=== PATIENT | male | born 1980 | race Caucasian/White ===

== ENCOUNTER 2023-08-20 09:32 | Emergency (ER) | payer BC, SELFPAY ==
[2023-08-20 09:34] VITALS: BP 157/99; PULSE 74; RESP 16; TEMP 36.1; O2SAT 97; BMI 32.3
--- NOTE | 2023-08-20 09:46 | EDS_ITS ---
HPI History of Present Illness Chief Complaint: Upper Extremity Injury Detail of Chief Complaint: Right wrist injury Informant: patient Narrative Narrative: Patient presents to the emergency department with concern about possible injury to his right wrist and hand. Patient states that he was using an airless paint sprayer that builds up pressure in the system. Patient accidentally sprayed his right hand and wrist. Initially he thought maybe there was a little open area in the wrist but now does not see any breaks in the skin. He is got a little bit of erythema to the volar wrist and he also thinks he may have sprained the right index finger but he is not having any discomfort and he did not see any broken skin. Patient states that his friend freaked him out because others have lost limbs due to high-pressure injection of forearm material into extremities. PFSH PFSH Allergy/AdvReac Type Severity Reaction Status Date / Time No Known Allergies Allergy Verified 08/20/23 09:33 ROS ROS ED Review of Systems ROS Unobtainable: other Constitutional Constitutional ED: Reports lethargy; Denies chills, fever(s), sweats or weight loss Eyes Eyes: Denies blurry vision, change in vision or diplopia ENT ENT ED: Denies rhinorrhea or sore throat Cardiovascular Cardiovascular: Denies chest pain, orthopnea or racing heartbeat Respiratory/Chest Respiratory/Chest: Denies cough, dyspnea, dyspnea on exertion, orthopnea or sputum Gastrointestinal Gastrointestinal: Denies abdominal pain, diarrhea, nausea or vomiting Genitourinary Genitourinary ED: Denies dysuria, hematuria or urinary frequency Musculoskeletal Musculoskeletal: Reports other Details: Right hand and wrist injury ; Denies arthralgias, back pain, myalgias or neck pain Integumentary Denies abscess, Abrasions or rash Neurologic Neurologic: Denies headache(s) or weakness Psychiatric Psychiatric: Denies anxiety, depression or suicidal thoughts Endocrine Endocrinology: Denies polydipsia, polyphagia or polyuria Hematologic/Lymphatic Hematologic/Lymphatic: Denies easy bleeding, easy bruising or lymphadenopathy Allergic/Immunologic Allergic/Immunologic ED: Denies mouth swelling, tongue swelling or urticaria EXAM Physical Exam Const Vital Signs: 08/20/23 09:34 Temperature 96.9 F L Temperature Source Temporal Pulse Rate 74 Respiratory Rate 16 Blood Pressure 157/99 H Blood Pressure Mean 118 Pulse Ox 97 Oxygen Delivery Method Room Air Positive well nourished and well developed General Appearance ED: well developed and NAD HEENT Reports TM's clear and moist mucous membranes normocephalic and atraumatic; Negative for trauma or tenderness Tympanic Membrane ED: Yes TM's clear Eyes PERRL and EOMs intact bilaterally General Eye ED: Negative for pale conjunctiva or scleral icterus Neck no lymphadenopathy, supple and no JVD General: Negative for tenderness Chest Wall inspection of chest normal and palpation of chest normal Chest: Negative for tenderness Resp normal respiratory effort and clear to auscultation bilaterally Effort and Inspection: Negative for respiratory distress or pain with movement Auscultation: Negative for rhonchi, wheezes or diminished lung sounds Cardio regular rate, regular rhythm, S1 normal heart sound, S2 normal heart sound and no murmurs Peripheral Pulses: pulses 2+ throughout GI normal to inspection, nondistended, normoactive bowel sounds, soft to palpation, non-tender, non-distended and no masses Back/Spine no CVA tenderness and no thoracic nor lumbar tenderness Extremity Extremity Narrative: Right upper extremity-patient has white paint noted scattered over the right hand. Evaluation of the right index finger reveals no evidence of trauma without any breaks in the skin. There is no pain on exam no gas in the tissues. He has normal range of motion at the DIP as well as the PIP and MCP joint. Right wrist-over the volar portion of the wrist radial aspect there is a small faint area of erythema measuring approximately 1 cm in length by half a centimeter in diameter. I do not appreciate any breaks in the skin. No gas in the tissues and he has normal range of motion. He is neurovascular intact distally. General Extremety ED: Negative for edema General Extremity: Negative for edema Neuro oriented x3, CN's II-XII intact bilaterally, no sensory deficits noted and gait normal Sensorium / Orientation: awake, alert, oriented to person, oriented to place and oriented to time Motor Exam: strength 5/5 throughout and strength abnormal Psych mental status grossly normal Skin no rashes or lesions noted and no wounds MDM MDM MDM Narrative Medical decision making narrative: Patient presents with concern for possible foreign body ingestion of paint into his right index finger and wrist. Clinically looks well. Will obtain x-rays of the hand and wrist to evaluate further. Clinically suspicion is low for foreign body into the tissues. X-rays show no evidence of foreign body or gas in soft tissues. I do not see any broken skin clinically I do not suspect there was any type of injection into the soft tissues. Recommended that he keep a close eye on his wrist and finger and return for any increasing pain, redness, swelling, or condition should worsen anyway. Radiography Diagnostic Testing: Three-view x-rays of the right hand obtained interpreted by myself as no evidence of foreign bodies in the soft tissues or gas in the soft tissues. Radiology in agreement. Three-view x-rays of the right wrist obtained interpreted by myself as no evidence of foreign bodies or gas in soft tissue or any acute process. Radiology in agreement. Discharge Plan Triage Chief Complaint: Upper Extremity Injury ED Provider: Anais Headley Dx/Rx/DC Orders Clinical Impression: Contusion of right wrist Instructions: Bruises (Contusions) Primary Care Provider: Care Physician,No Primary Referrals: [facility] Doctor,Out of [Non-Staff] - Activity Restrictions/Additional Instructions: Follow-up with your primary care physician within next 3 to 5 days for a wound check. Return to the ER if increasing pain, redness, swelling, or condition should worsen anyway. Disposition Disposition: Home, Self Care
--- NOTE | 2023-08-20 10:00 | RAD_ITS ---
STUDY: X-RAY - RIGHT WRIST REASON FOR EXAM: Male, 42 years old. ro FB injetion of paint TECHNIQUE: 3 view(s) of the wrist were obtained. COMPARISON: None. FINDINGS: Normal visualized distal radius and ulna. Normal radiocarpal articulation. Normal distal radioulnar articulation. Normal carpal bones. Normal carpal articulations. Normal carpometacarpal articulation of the thumb. Normal second through fifth carpometacarpal articulations. Normal visualized metacarpal bones. The soft tissue structures are unremarkable. RAD/Wrist min 3 Views IMPRESSION: Normal x-ray examination of the wrist. Electronically Signed: Hernandez Shaw MD at 10:15 EDT ,
--- NOTE | 2023-08-20 10:00 | RAD_ITS ---
STUDY: X-RAY - RIGHT HAND REASON FOR EXAM: Male, 42 years old. RO, FB injection of paint right index finger TECHNIQUE: 3 view(s) of the hand. COMPARISON: None. FINDINGS: Normal radiocarpal articulation. Normal distal radioulnar joint. Normal visualized carpal bones. Normal carpal articulations Normal carpometacarpal articulation of the thumb. Normal second through fifth carpometacarpal joints. Normal metacarpi. Normal metacarpophalangeal joint of the thumb. Normal interphalangeal joint of the thumb. Normal proximal and distal phalanges of the thumb. Normal metacarpophalangeal joints of the second through fifth fingers. Normal proximal and distal interphalangeal joints of the second through fifth fingers. Normal phalanges of the second through fifth fingers. The soft tissue structures are unremarkable. RAD/Hand Min 3 Views IMPRESSION: Normal x-ray examination of the hand. Electronically Signed: Hernandez Shaw MD at 10:14 EDT ,
[2023-08-20 10:52] VITALS: BP 126/88; PULSE 64; RESP 16; TEMP 36.2; O2SAT 94
== END 2023-08-20 10:56 | disposition home or self-care (01) ==
PROVIDERS: Emergency Provider Emergency Medicine; Visit Provider Emergency Medicine
DX: S60.211A Contusion of right wrist, initial encounter (principal); W94.0XXA Exposure to prolonged high air pressure, initial encounter
CPT/HCPCS: 73110; 73130; 99282